=== PATIENT | female | born 1990 | race Asian ===

== ENCOUNTER 2019-11-05 10:30 | Inpatient (IN) | payer OTHER ==
[2019-11-05] MEDS ORDERED: Lactated Ringers 1000 ML Bag* 1,000 ML IV ONE (11:43)
[2019-11-05] MEDS ORDERED: Buffered Lidocaine 1% SYRIN* 1 ML/SYRINGE INTRADERM ONE (11:43)
--- NOTE | 2019-11-05 11:51 | HP ---
General Information - Reason for Visit Contractions, increasing in intensity since last night - General Information Maternal Age: 29 Grav: 3 Para: 1 SAB: 1 IEA: 0 Estimated Due Date: 11/05/19 Determined By: LMP Maternal Blood Type and Rh: O Positive - Results this Serology/RPR Result: Non-Reactive Rubella Result: Immune HBsAg Result: Negative HIV Result: Negative GBS Culture Result: Negative Past Medical History Delivery History: See Records - SVB 04/14 Pertinent Past Medical History: Non-Contributory Pertinent Past Surgical History: None Pertinent Family History: See Records Family History Comment: Gallbladder stroke HTN pulmonary - Antepartal Records Antepartal Records: Reviewed, Uncomplicated Review of Systems Constitutional: Uncomfortable CV Complaint: No Respiratory: Shortness of Breath: No Gastrointestinal: No Nausea/Vomiting, Normal Bowel Movement Genitourinary: No Leaking Fluid, Spotting Musculoskeletal: Contractions Neurological: No Headache, No Visual Changes Movement: Normal Exam Allergies/Adverse Reactions: Allergies No Known Allergies Allergy (Verified 11/05/19 11:40) BP 99/66 T 98.0 HR 92 O2 98 - Measurements Height: 5 ft 5 in Weight: 142 lb Weight in lbs: 142.201513 Body Mass Index (BMI): 23.6 Pre- Weight: 117 lb Weight Gained This : 25 lbs and 0 ozs - Exam Breast: Breast Exam Deferred CVA: No CVA Tenderness Extremities: No Edema Heart: Normal Rhythm/Heart Sounds HEENT: No Significant Findings Lungs: Clear Bilaterally Rectal: Rectal Exam Deferred Reflexes: - - not done Thyroid: - - Abdominal Exam Abdomen Exam: Non-Tender, Fundal Height Consistent with Dates - Ultrasound/Biophysical Profile Ultrasound Status: Not Done Targeted Exam Findings Estimated Weight: 6.5-7lb Cervical Exam: 8cm, 9cm Effacement: 100% Station: 0 Presenting Part: Vertex Membrane Status: Intact Bleeding/Discharge: None EFM Findings - External Monitor Findings Baseline Heart Rate: 140 External Monitor Findings: Accelerations Present, No Pattern of Variable or Late Decelerations, Variability Moderate Contractions: Regular, Moderate, Strong, 45-90 Seconds Contraction Frequency: q 3-4 min Assessment/Plan - Assessment IUP @ 40+0 weeks gestation in active labor. Doubt acidemia. Intact membranes. - Plan Plan: Admit - Anticipate Vaginal Delivery Plan Comment: Admit to L&D. Encourage free movement. Anticipate SVB. - Date/Time of Admission Date of Admission: 11/05/19 Time of Admission: 11:40
[2019-11-05] MEDS ORDERED: Lactated Ringers 1000 ML Bag* 1,000 ML IV SCH (12:00)
[2019-11-05 12:27] LABS: Urine Benzodiazepine Screen None Detected (None Detect); Urine Opiates Screen None Detected (None Detect)
[2019-11-05] MEDS ORDERED: Ibuprofen TAB* 600 MG PO PRN (15:47)
[2019-11-05] MEDS ORDERED: Glycerin ADULT SUPP PR PRN (15:47)
[2019-11-05] MEDS ORDERED: Dibucaine 1% 28.35 GM TUBE PR PRN (15:47)
[2019-11-05] MEDS ORDERED: Acetaminophen TAB* 325 MG PO PRN (15:47)
[2019-11-05] MEDS ORDERED: Witch Hazel PAD* JAR TOPICAL PRN (15:47)
--- NOTE | 2019-11-05 16:02 | PROCNOTE ---
[facility] OB: Delivery Note - Delivery A Date of : 11/05/19 Time of : 13:32 [place] Sex: Female - "Ambar" Weight at : 7 lb 13 oz Score 1 Minute: 8 Score 5 Minutes: 9 Gestational Age in Weeks and Days at Delivery: 40 Weeks and 0 Days Delivery Method: Spontaneous Vaginal Labor: Spontaneous Did Patient attempt ?: N/A, No Previous Amniotic Fluid: Clear Estimated Blood Loss: 300 Anesthesia/Analgesia: None Delivered By: El Spaulding - Nursery Level of Nursery: Regular/Bedside - Perineum Perineal Injury: Perineal Laceration, 1st Degree - Events Delivery Events of Note: None Apply - Additional Delivery Notes Additional Delivery Notes: Patient admitted in active labor. Progressed quickly with urge to push. Length of active labor 6'6", pushed 1'32". Coached through increasingly effective pushing, several position changes to with large bulging fluid-filled membrane. Strong maternal efforts to of baby OA with intact membrane over head, SROM just after, and restitution to MYA with maternal efforts delivering shoulders smoothly. Baby to maternal abdomen with spontaneous cry. Cord doubly clamped and cut by FOB once pulsations ceased. Fundus firm after teasing out small amount of trailing membrane. Repair as above. Baby at breast to initiate .
[2019-11-05] MEDS: Docusate CAP* 100 MG PO SCH (19:58)
[2019-11-06 07:58] LABS: ABS Lymphocytes 1.3 10^3/ul (1.0-4.8); ABS Monocytes 0.5 10^3/ul (0-0.8); ABS Neutrophils 7.2 10^3/ul (1.5-7.7); Eosinophil % 0.5 %; Hematocrit 36 % (35-47); Hemoglobin 12.2 g/dL (12.0-16.0); Mean Corpuscular HGB Conc 34 g/dL (31-36); Mean Corpuscular Hemoglobin 31 pg (27-31); Mean Corpuscular Volume 89 fL (80-97); Mean Platelet Volume 7.9 fL (7.4-10.4); Platelet Count 155 10^3/uL (150-450); Red Blood Count 3.98 10^6 /uL (3.70-4.87); Red Cell Distribution Width 14 % (10-15)
[2019-11-06] MEDS ORDERED: Ferrous Gluconate TAB* 324 MG TAB PO SCH (09:00)
[2019-11-06] MEDS: Docusate CAP* 100 MG PO SCH ×3 (09:59→21:05)
[2019-11-07 09:08] VITALS: BP 100/63
[2019-11-07] MEDS: Docusate CAP* 100 MG PO SCH (09:09)
== END 2019-11-07 11:20 | disposition home or self-care (01) | DRG 807 ==
LOC: MCHOBOUT 10:30 → MCHOB 11:36
PROVIDERS: ADMIT Midwife; ATTEND Midwife
PROC: 10E0XZZ Delivery of Products of Conception, External Approach (ICD-10-PCS; principal; 2019-11-05)
PROC: 4A1HXCZ Monitoring of Products of Conception, Cardiac Rate, External Approach (ICD-10-PCS; 2019-11-05)
PROC: 0HQ9XZZ Repair Perineum Skin, External Approach (ICD-10-PCS; 2019-11-05)
DX: O70.0 First degree perineal laceration during delivery (principal); Z37.0 Single live birth; O73.1 Retained portions of placenta and membranes, without hemorrhage; Z3A.40 40 weeks gestation of pregnancy
CPT/HCPCS: 36415; 80307; 85025; A9270-GY; G0480